=== PATIENT | female | born 1975 | race Two or more races ===

== ENCOUNTER 2018-08-29 22:28 | Emergency (ER) | payer BC, OTHER ==
[~2018-08-29] VITALS: Ht 165.1 cm; Wt 97.0 kg
[2018-08-29 22:31] VITALS: BP 107/65
[2018-08-29] MEDS ORDERED: HYDROcodone/APAP 5/325 TABLET ONE (23:13)
[2018-08-29] MEDS ORDERED: HYDROcodone/APAP 5/325 TABLET PO ONE (23:30)
== END 2018-08-29 23:52 | disposition home or self-care (01) ==
LOC: ED 23:09
DX: S82.62XA Displaced fracture of lateral malleolus of left fibula, initial encounter for closed fracture (principal); X50.1XXA Overexertion from prolonged static or awkward postures, initial encounter; Y93.01 Activity, walking, marching and hiking; Y92.89 Other specified places as the place of occurrence of the external cause; Y99.8 Other external cause status
CPT/HCPCS: 29515; 99284